=== PATIENT | female | born 1990 | race Two or more races ===

== ENCOUNTER 2018-03-05 11:45 | Emergency (ER) | payer OTHER ==
[~2018-03-05] VITALS: Ht 172.7 cm; Wt 66.7 kg
[2018-03-05 12:02] VITALS: BP 120/84
== END 2018-03-05 12:19 | disposition home or self-care (01) ==
LOC: ER 11:55
DX: R05 Cough (principal); J40 Bronchitis, not specified as acute or chronic
CPT/HCPCS: 99283; A4606; Z7610